=== PATIENT | male | born 1985 | race Caucasian/White ===

== ENCOUNTER 2021-05-25 00:21 | Day surgery (SDC) | payer BC, SELFPAY ==
[2021-03-17 11:20] VITALS: BMI 20.3
[2021-05-11 10:30] VITALS: BMI 20.3
[2021-05-25 08:14] VITALS: BP 108/72; PULSE 98; RESP 16; TEMP 36.4; O2SAT 100; BMI 20.7
--- NOTE | 2021-05-25 08:18 | WPDANESEPPF ---
Anes - Initial Pre Proc Eval Procedure: Operation Date: 05/25/21 09:15 Proposed Procedures p Esophagogastroduodenoscopy & Screening Colonoscopy - Gold Benítez MD Date/Time: 05/25/21 08:18 Surgeon: Gold Benítez MD Pre Op Diagnosis: family hx colon ca, GERD Patient Data Age: 35 Gender: M Height: 1.83 m Weight: 69.2 kg Last Vital Signs Temp 36.4 C 05/25/21 08:14 Pulse 98 05/25/21 08:14 Resp 16 05/25/21 08:14 BP 108/72 05/25/21 08:14 Pulse Ox 100 05/25/21 08:14 Allergies Allergy/AdvReac Type Severity Reaction Status Date / Time amoxicillin Allergy Rash Verified 05/25/21 08:13 Home Medications Medication Instructions Recorded Confirmed Type lamotrigine 100 mg PO DAILY 03/17/21 05/25/21 History omeprazole 20 mg PO DAILY 03/17/21 05/25/21 History trazodone 25 - 50 mg PO HS 03/17/21 05/25/21 History Patient hx anesthesia problems: none Family hx anesthesia problems: none Results Review: All pre-operative results and documents have been reviewed as part of the pre-operative evaluation. [facility] Past Medical History Medical History (Updated 05/22/21 @ 12:17 by Carlos Cisneros DO) Anxiety Depression GERD (gastroesophageal reflux disease) Surgical History Surgical History (Updated 05/22/21 @ 12:17 by Carlos Cisneros DO) History of tonsillectomy Social History Social History Smoking status: Never smoker Living arrangements: with family Spiritual care concerns: No Anes - Eval Final PreProcedure Day of Procedure 05/25/21 08:18 Patient weight: normal Heart: regular rate and rhythm Lungs: clear to auscultation and normal air movement Airway: Mallampati scale class II Neurological: alert and oriented Last oral intake: >/= 8 hours ASA classification: II Emergent: no Anesthetic plan: proceed Anesthesia type and monitoring: general GIVS and standard monitoring Results Review: All pre-operative results and documents have been reviewed as part of the pre-operative evaluation. Informed Consent: The patient's anesthetic plan and its attendant risks and benefits were discussed with the patient/family/POA. Questions were solicited and answers provided to the satisfaction of the patient/family/POA.
[2021-05-25] MEDS: LACTATED RINGERS 1,000 ML 150 ML IV CONT (08:25)
--- NOTE | 2021-05-25 08:50 | PM.HPGS ---
History of Present Illness History of Present Illness Consent: Risks, benefits, and alternatives have been discussed and questions answered. Patient agrees to proceed with procedure. Chief complaint: family hx colon ca, GERD Narrative: Can Irwin is a 35 year old male with chronic GERD, used to be on pepcid but did not help, has been using omeprazole for ~ 2 months and it is working much better, never had scopes. Mother with colon cancer at her 40's Review of Systems Constitutional: Constitutional: Denies headache(s) and Denies weakness Eyes: Eyes: Denies blurry vision ENT: Reports Normal hearing present, Denies headache(s) and Denies neck pain Cardiovascular: Cardiovascular: Denies chest pain and Denies dyspnea Respiratory: Respiratory: Denies dyspnea Gastrointestinal: Gastrointestinal: Reports no additional gastrointestinal complaints Genitourinary: Genitourinary: Denies dysuria Musculoskeletal: Musculoskeletal: Denies neck pain Integumentary/Breasts: Skin/Breast: Denies dry skin Neurologic: Reports Normal hearing present, Denies headache(s) and Denies weakness Psychiatric: Psychiatric: Denies anxiety Endocrine: Endocrine: Denies change in body appearance Hematologic/Lymphatic: Hematologic/Lymphatic: Denies easy bleeding Allergic/Immunologic: Allergic/Immunologic: Denies urticaria PMFSH Past Medical History Medical History (Updated 05/25/21 @ 08:51 by Gold Benítez MD) Anxiety Depression Family history of colon cancer in mother GERD (gastroesophageal reflux disease) Surgical History Surgical History (Updated 05/22/21 @ 12:17 by Carlos Cisneros DO) History of tonsillectomy Social History Social History Smoking status: Never smoker Living arrangements: with family Spiritual care concerns: No Meds Home Medications and Allergies Home Medications Medication Instructions Recorded Confirmed Type lamotrigine 100 mg PO DAILY 03/17/21 05/25/21 History omeprazole 20 mg PO DAILY 03/17/21 05/25/21 History trazodone 25 - 50 mg PO HS 03/17/21 05/25/21 History Allergies Allergy/AdvReac Type Severity Reaction Status Date / Time amoxicillin Allergy Rash Verified 05/25/21 08:13 Vital Signs Vital Signs - 24 hr 05/25/21 08:14 Temperature 97.6 F Pulse Rate 98 Respiratory Rate 16 Blood Pressure 108/72 Pulse Oximetry 100 Exam Const: General: comfortable and no acute distress HENMT: General nose exam: Normal nares present Eyes: General: appearance normal, both eyes and all related structures Neck: Neck: no JVD Resp: Auscultation: clear to auscultation bilaterally Cardio: Rate: regular rate Rhythm: regular rhythm GI: Inspection: non-distended GI Palp: Yes Soft to palpation Skin: General skin exam: normal color Neuro: General: gait normal Speech: normal speech Extrem: General: normal to inspection Psych: Mental Status: mental status grossly normal Assessment and Plan Assessment and plan (1) GERD (gastroesophageal reflux disease): Code(s): K21.9 - Gastro-esophageal reflux disease without esophagitis Status: Inactive Assessment and Plan: egd with bx, controlled with ppi (2) Family history of colon cancer in mother: Code(s): Z80.0 - Family history of malignant neoplasm of digestive organs Status: Acute Assessment and Plan: colonoscopy
--- NOTE | 2021-05-25 09:16 | SUR.OPER ---
EGD: Start 08:59, End 09:02. Colon: Start 09:05, End 09:14.
[2021-05-25 09:19] VITALS: BP 103/58; PULSE 79; RESP 17; O2SAT 100
[2021-05-25 09:29] VITALS: BP 95/62; PULSE 66; RESP 14; O2SAT 100
[2021-05-25 09:39] VITALS: BP 105/67; PULSE 66; RESP 17; O2SAT 100
== END 2021-05-25 09:48 | disposition home or self-care (01) ==
PROVIDERS: PCP Emergency Medicine; Visit Provider Internal Medicine Gastroenterology
PROC: 0DJ08ZZ Inspection of Upper Intestinal Tract, Via Natural or Artificial Opening Endoscopic (ICD-10-PCS; CPT 43235; principal; 2021-05-25 09:15)
DX: Z12.11 Encounter for screening for malignant neoplasm of colon (principal); Z80.0 Family history of malignant neoplasm of digestive organs; K64.8 Other hemorrhoids; K29.50 Unspecified chronic gastritis without bleeding; K21.9 Gastro-esophageal reflux disease without esophagitis; F41.8 Other specified anxiety disorders
CPT/HCPCS: 45378; 43239; 88305; J2704; J7120

== ENCOUNTER 2025-03-18 00:59 | Day surgery (SDC) | payer BC, SELFPAY ==
[2025-03-13 11:28] VITALS: BMI 20.3
[2025-03-18 06:28] VITALS: BP 107/52; PULSE 52; RESP 18; TEMP 36.8
[2025-03-18] MEDS: LACTATED RINGERS 1,000 ML 150 ML IV CONT (06:36)
--- NOTE | 2025-03-18 07:02 | WPDANESEPPF ---
Anes - Initial Pre Proc Eval Procedure: Operation Date: 03/18/25 07:45 Proposed Procedures p Esophagogastroduodenoscopy EGD - Gold Benítez MD Date/Time: 03/18/25 07:02 Surgeon: Gold Benítez MD Pre Op Diagnosis: GERD Patient Data Age: 39 Gender: M Height: 1.83 m Weight: 67.9 kg Last Vital Signs Temp 36.8 C 03/18/25 06:28 Pulse 52 L 03/18/25 06:28 Resp 18 03/18/25 06:28 BP 107/52 L 03/18/25 06:28 Allergies Allergy/AdvReac Type Severity Reaction Status Date / Time amoxicillin Allergy Rash Verified 03/18/25 06:25 Home Medications ?Medication ?Instructions ?Recorded ?Confirmed ?Type trazodone 50 mg tablet 25 - 50 mg PO HS 03/17/21 03/18/25 History linaclotide 145 mcg capsule 145 mcg PO DAILY 01/19/23 03/13/25 History (Ladonna) ixekizumab 80 mg/mL subcutaneous 80 mg subcut MONTHLY 05/29/24 03/18/25 History auto-injector (Taltz Autoinjector) lamotrigine 100 mg tablet 100 mg PO DAILY 03/06/25 03/18/25 History vonoprazan 20 mg tablet (Voquezna) 20 mg PO DAILY #30 tabs 03/06/25 03/18/25 Rx linaclotide 72 mcg capsule 72 mcg PO DAILY 03/13/25 03/18/25 History (Ladonna) Patient hx anesthesia problems: none Family hx anesthesia problems: none Results Review: All pre-operative results and documents have been reviewed as part of the pre-operative evaluation. [facility] Past Medical History Medical History Ankylosing spondylitis Constipation Family history of colon cancer in mother Depression Anxiety GERD (gastroesophageal reflux disease) Surgical History Surgical History History of tonsillectomy Social History Social History Smoking status: Never smoker Living arrangements: alone Spiritual care concerns: No Anes - Eval Final PreProcedure Day of Procedure 03/18/25 07:02 Patient weight: normal Heart: regular rate and rhythm Lungs: clear to auscultation and normal air movement Airway: Mallampati scale class II Neurological: alert and oriented Last oral intake: >/= 8 hours ASA classification: II Emergent: no Anesthetic plan: proceed Anesthesia type and monitoring: general GIVS and standard monitoring Results Review: All pre-operative results and documents have been reviewed as part of the pre-operative evaluation. Informed Consent: The patient's anesthetic plan and its attendant risks and benefits were discussed with the patient/family/POA. Questions were solicited and answers provided to the satisfaction of the patient/family/POA.
--- NOTE | 2025-03-18 07:51 | WPDHPUPDATE1 ---
History and Physical Update Update Date/Time: 03/18/25 07:51 History and Physical has been reviewed, including an updated exam of the patient. There are NO changes in the patient's condition. Risks, benefits, and alternatives have been discussed and questions answered. Patient agrees to proceed with procedure.
--- NOTE | 2025-03-18 07:58 | S_PTH ---
PATIENT: Can Irwin LOC: [facility]#:[id number] AGE/SX: 39/M ROOM: RE03/18/[address]: Gold Benítez MD : 1985 BED: DIS: 03/18/2025 SPEC #: [id number] RECD: 03/18/25 10:43 STATUS: MARY ALICE REQ #: [id number] YADIRA: 03/18/25 07:[address]: Gold Benítez DEPT: [facility] Surgical RECD BY: Elvira Woodson ENTERED: 03/18/25 10:43 SP TYPE: Surgical OTHR DR: Jaime Ferrara MD Tissues: A - Esophageal Biopsy B - Gastric Biopsy Procedures: Hematoxylin and Eosin Stain Gross and Microscopic Level 4
[2025-03-18 08:05] VITALS: BP 96/58; PULSE 57; RESP 16; O2SAT 100
[2025-03-18 08:15] VITALS: BP 104/64; PULSE 64; RESP 16; O2SAT 100
[2025-03-18 08:25] VITALS: BP 109/74; PULSE 50; RESP 14; O2SAT 100
== END 2025-03-18 08:35 | disposition home or self-care (01) ==
PROVIDERS: PCP Emergency Medicine; Referring Provider Internal Medicine Gastroenterology; Visit Provider Internal Medicine Gastroenterology
PROC: 0DJ08ZZ Inspection of Upper Intestinal Tract, Via Natural or Artificial Opening Endoscopic (ICD-10-PCS; CPT 43239; principal; 2025-03-18 07:45)
DX: K21.9 Gastro-esophageal reflux disease without esophagitis (principal); K29.50 Unspecified chronic gastritis without bleeding
CPT/HCPCS: 43239; 88305; J2003; J2704; J7120